=== PATIENT | male | born 1990 | race Caucasian/White ===

== ENCOUNTER 2021-02-14 02:45 | Emergency (ER) | payer MEDICAID, OTHER ==
[~2021-02-14] VITALS: Ht 170.2 cm; Wt 77.3 kg
[~2021-02-14 02:45] MED LIST: CLIN150C2 PO; NO HOME MEDS
[2021-02-14 02:48] VITALS: BP 127/72
== END 2021-02-14 03:39 ==
LOC: ER 02:45
DX: S00.03XA Contusion of scalp, initial encounter (principal); S00.411A Abrasion of right ear, initial encounter; R51.9 Headache, unspecified; F17.210 Nicotine dependence, cigarettes, uncomplicated; F11.90 Opioid use, unspecified, uncomplicated; Z72.89 Other problems related to lifestyle; Z56.0 Unemployment, unspecified; Z79.2 Long term (current) use of antibiotics; X58.XXXA Exposure to other specified factors, initial encounter; Y93.89 Activity, other specified; Y92.89 Other specified places as the place of occurrence of the external cause; Y99.8 Other external cause status
CPT/HCPCS: 70450; 99284

== ENCOUNTER 2024-10-08 11:43 | Emergency (ER) | payer MEDICAID ==
[~2024-10-08] VITALS: Ht 180.3 cm; Wt 68.3 kg
[2024-10-08 11:44] VITALS: BP 111/72; PULSE 77; RESP 15; TEMP 97.7; O2SAT 98
--- NOTE | 2024-10-08 12:43 | Physician Documentation ---
History of Present Illness ~ Chief Complaint: Leg Laceration Stated Complaint: L LEG LAC Time Seen by MD: 12:07 Primary Medical Doctor: None HPI 34-year-old male presents to the ED with a complaint of a leg laceration on his upper left thigh states he got his leg with a almond grinder on accident. states he is also up-to-date on his tetanus shot. Bleeding is controlled Day of Onset: Oct 08, 2024 Tetanus Within 5 Years: No Medication Reconciliation Allergies: Coded Allergies: No Known Allergies (Unverified , 01/22/12) Scheduled Clindamycin (Cleocin ), 300 MG PO Q6H Miscellaneous Medications Home Med List (No Home Medications), (Reported) Past Medical History Past Medical History: No Pertinent History Past Surgical History: no surgical history Alcohol Use: Occasionally Drug Use: heroin Lives with: Mother Lives In: Home Occupation: unemployed Review of Systems All Other Systems at this time: Reviewed and Negative ROS As stated above in the HPI, otherwise all systems are reviewed and negative. Physical Exam Vital Signs: Temperature: 97.7, Source: Temporal, Heart Rate: 77, Respiratory Rate: 15, BP: 111/72, Pulse Oximetry: 98, Weight: 68.350 Physical Exam General: Alert, no apparent distress. Extremities: Normal range of motion, no deformity. Left thigh has a 6 cm linear laceration Neurologic: Oriented x4. Psychiatric: Normal mood and affect. Skin: Normal color, warm and dry. No edema, no ecchymosis. Procedures Laceration/Wound Repair Laceration : Anesthesia: Lidocaine w/ Epi Margins: revised Suture Size/Type: 4-0 Number of Superficial Sutures: 10 Dressing Applied: simple, non-adherent Tolerated Procedure Well?: yes, no complications Progress Results/Orders Results/Orders Orders - WILLIAN HERNANDEZ EXTRACTOR AND WRINGER OPERATOR Laceration/I&D Tray Set Up (10/08/24 ) Completed Orders - WILLIAN HERNANDEZ EXTRACTOR AND WRINGER OPERATOR Lidocaine 1% W/Epi 1:100,000 (Xylocaine (10/08/24 12:45) Vital Signs 10/08/24 11:44 Temp 97.7 Pulse 77 Resp 15 B/P (MAP) 111/72 Pulse Ox 98 Medical Decision Making Findings Approximated leg wound without difficulty with 10 4-0 sutures. Patient states he is up-to-date in his tetanus. Denies the sutures removed in 7-10 days Differential Dx:Considerations: Include: Abrasion, Avulsion, Contusion, Laceration, Fracture, Hematoma, Neurovascular injury, Retained foreign body, Other Departure Disposition: 01 HOME / SELF CARE / HOMELESS Impression: Primary Impression: Laceration Condition: Stable Discharge Instructions: Laceration Care, Adult Additional Instructions: In the area clean sutures removed with in seven- 10 days Referrals: NO PRIMARY CARE PROVIDER (PCP) Signature Scribe Signature: g Attestation: Scribed for Willian Hernandez Feed Mill Tender by Willian Weinberg NP . 10/08/24 15:11 WILLIAN HERNANDEZ NP Oct 08, 2024 12:43
[2024-10-08] MEDS: LIDOcaine 1% W/epiNEPHrine 1:100,000 20ml vial SQ ONE (13:03)
== END 2024-10-08 13:30 | disposition home or self-care (01) ==
LOC: ER 11:44
DX: S71.112A Laceration without foreign body, left thigh, initial encounter (principal); Z56.0 Unemployment, unspecified; Z72.89 Other problems related to lifestyle; W31.9XXA Contact with unspecified machinery, initial encounter; Y93.89 Activity, other specified; Y92.89 Other specified places as the place of occurrence of the external cause; Y99.8 Other external cause status
CPT/HCPCS: 12002; 99282; J7030; A6449